=== PATIENT | female | born 1940 | race Caucasian/White ===

== ENCOUNTER 2021-04-03 09:35 | Emergency (ER) | payer MEDICARE, SELFPAY ==
--- NOTE | 2021-04-03 12:03 | EDS_ITS ---
DATE OF SERVICE 04/03/21 HISTORY OF PRESENT ILLNESS: The patient presents with rectal bleeding that began today. She states that she has been having pain in her rectum. She states that she noticed blood on the toilet paper when she wiped this morning. She denies any nausea or vomiting. She denies any dysuria, hematuria or urinary frequency. The patient states that this only happened one time today. The patient denies any abdominal pain. The patient denies any fever or chills. The patient denies any nausea or vomiting. PAST MEDICAL HISTORY: Stroke, diabetes, hypertension, hypercholesterolemia, kidney failure, depression and anxiety. PAST SURGICAL HISTORY: Hysterectomy and left carotid endarterectomy. CURRENT MEDICATIONS: Lisinopril, Wellbutrin, Plavix, pravastatin, vitamin D, Ocuvite. ALLERGIES: Sulfa. SOCIAL HISTORY: The patient smokes 6-7 cigarettes per day. REVIEW OF SYSTEMS: The patient admits to some rhinorrhea. The patient denies any fevers or chills. The patient denies any chest pain or palpitations. The patient denies any shortness of breath or cough. The patient denies any abdominal pain, nausea, vomiting. The patient denies any dysuria or hematuria. The patient admits to some chronic neck pain, but denies any back pain. The patient denies any rashes or boils. The patient denies any headaches. The patient admits to some weakness and feels tired. The patient denies any hives or swelling. PHYSICAL EXAMINATION: GENERAL: No acute distress. VITAL SIGNS: Stable, afebrile. HEENT: Oral mucosa is pink and moist. Conjunctivae clear. There is no conjunctival pallor noted. Pupils are equal, round and reactive to light bilaterally. NECK: Supple. Trachea midline. No JVD. LUNGS: Clear and equal bilaterally. HEART: Regular rate and rhythm. ABDOMEN: Soft. Bowel sounds are normal. There is mild diffuse tenderness. There is no rebound or guarding noted. RECTAL: There is an external hemorrhoid. There is some friable mucosa. There is no tenderness. There is no thrombosis. NEUROLOGIC: Cranial nerves II- XII are intact. There are no focal motor or sensory deficits noted. DIAGNOSTIC DATA: CBC was within normal limits. CMP was obtained and essentially within normal limits. BUN was slightly elevated at 20. Glucose was 122. Calcium was normal. Remainder within normal limits. EMERGENCY DEPARTMENT COURSE AND MEDICAL DECISION MAKING: The patient is resting comfortably on reexamination. The patient feels better and wants to go home. PLAN: The patient was given a prescription for Anusol HC cream. The patient was instructed to follow up with her primary care physician in 5-7 days. The patient and family understood and were agreeable with the plan. All questions answered. DIAGNOSIS: 1. External hemorrhoid 2. Rectal bleeding DISPOSITION: The patient is discharged home CONDITION: Stable
[2021-04-04 10:12] LABS: Absolute Lymphocyte Count 2.02 X10^3/uL (0.83-4.51); Absolute Neutrophil Count 2.1 X10^3/uL (2.0-7.7); Basophil# 0.04 X10^3/uL; Basophil% 0.8 % (0-1); Eosinophil# 0.18 X10^3/uL; Eosinophils% 3.8 % (0-5); Hematocrit 44.2 % (37-47); Hemoglobin 14.6 g/dL (12.0-15.0); Lymphocyte # 2.02 X10^3/ul (0.83-4.51); Lymphocyte % 42.5 % (19-41); Mean Corpuscular Hgb 30.2 pg (27.0-32.0); Mean Corpuscular Volume 91.3 fL (81-99); Mean Platelet Vol. 10.1 fl (6.2-12.0); Monocyte# 0.41 X10^3/uL; Monocyte% 8.6 % (0-10); NRBC Flagged by Analyzer 0 % (0-5); Neutrophil % 44.3 % (47-70); Platelet Count 230 K/mm3 (150-450); RBC Distribution Width CV 12.8 % (11.6-14.6); RBC Distribution Width SD 42.9 fl (35.1-43.9); Red Blood Count 4.84 M/mm3 (4.2-5.4); White Blood Count 4.8 K/mm3 (4.4-11.0)
[2021-04-04 11:57] LABS: ALB/GLOB Ratio 0.9 RATIO (0.9-2.4); Albumin, Serum 3.5 g/dL (3.2-5.0); BUN 20 mg/dL (7-18); BUN/Creat Ratio 16.9 RATIO (10-20); Creatinine, Serum 1.18 mg/dL (0.55-1.02); EST Glomerular Filtration Rate 47 mL/min (>60); Est Glom Filt Rate - Afr Amer 57 mL/min (>60); Globulin 3.9 g/dL (2.2-4.2); Glucose 122 mg/dL (74-106); Protein, Total 7.4 g/dL (6.4-8.2)
[2021-04-04 11:58] LABS: AST(SGOT) 13 U/L (15-37); Alanine Aminotransfer ALT/SGPT 22 U/L (13-56); Alkaline Phosphatase 68 U/L (45-117); Anion Gap 5 (5-15); Calcium,Total 9.9 mg/dL (8.5-10.1); Chloride 105 mmol/L (98-107); Sodium Level 140 mmol/L (136-145)
== END 2021-04-03 12:15 | disposition home or self-care (01) ==
LOC: ED 04-05 13:33
PROVIDERS: Emergency Provider Emergency Medicine; PCP Family Medicine; Visit Provider Emergency Medicine
DX: K64.4 Residual hemorrhoidal skin tags (principal); E11.9 Type 2 diabetes mellitus without complications; K62.5 Hemorrhage of anus and rectum; I10 Essential (primary) hypertension; E78.00 Pure hypercholesterolemia, unspecified; F32.A Depression, unspecified; F41.9 Anxiety disorder, unspecified; M54.2 Cervicalgia; G89.29 Other chronic pain; Z79.82 Long term (current) use of aspirin; F17.210 Nicotine dependence, cigarettes, uncomplicated; Z86.73 Personal history of transient ischemic attack (TIA), and cerebral infarction without residual deficits
CPT/HCPCS: 36415; 80053; 85025; 99284

== ENCOUNTER 2021-08-27 12:02 | Emergency (ER) | payer MEDICARE, MEDICAID, SELFPAY ==
[2021-08-27 12:03] VITALS: BP 147/73; PULSE 85; RESP 20; TEMP 36.4; O2SAT 96; BMI 28.6
--- NOTE | 2021-08-27 12:32 | ED.VIS.FALL ---
HPI HPI - Fall History of Present Illness Chief Complaint: Fall Detail of Chief Complaint: Chemical fall at home yesterday Informant: patient and family Occured/Mechanism Occurred: Yesterday Narrative: History of dropfoot. She tripped because she did not raise her leg high enough. Fall from Height (ft): Same level fall Usually ambulates: Without assistance Pain/Injury Pain Location: upper extremity (Left shoulder and posterior left back) Quality of Pain: Dull, Aching and Throbbing Current Severity: Mild Maximum Severity: Severe Worsened by: Movement of torso and deep breathing Relieved by: Nothing Associated Symptoms Associated Symptoms: Negative for Parasthesias, Weakness, Loss of function, Inability to ambulate, Loss of consciousness or Amnesia Narrative Narrative: Patient is a 81-year-old woman who had a mechanical fallWho presents for pain management. She reportedly had x-rays of the shoulder and chest which revealed multiple rib fracture on the left. Awaiting report from [facility] urgent care. She reports confusion with opiates. She has had tramadol in the past and morphine in the past. She denies head trauma. Denies headache. Denies visual, ocular auditory symptoms. She states it hurts to breathe. She denies shortness of breath. She denies change in the color of her urine. She denies bleeding problems. She does bruise easily. She has no other complaints Tetanus Immunization: 5-10 years Prior similar symptoms: No Recent Illness/Hospitalization: No PFSH PFSH Home Medications cetirizine 10 mg capsule (Allergy Relief (cetirizine)) 10 mg PO DAILY 05/22/13 [History Last Taken Unknown] lisinopril 10 mg tablet 10 mg PO DAILY 05/22/13 [History Last Taken 05/30/14] Lenore's wort 150 mg capsule 150 mg PO DAILY 05/29/14 [History Last Taken Unknown] aspirin 325 mg tablet 325 mg PO DAILY@0800 05/29/14 [History Last Taken Unknown] cholecalciferol (vitamin D3) 25 mcg (1,000 unit) tablet (Vitamin D3) 1,000 unit PO DAILY 05/29/14 [History Last Taken Unknown] lutein 6 mg capsule 6 mg PO DAILY 05/29/14 [History Last Taken Unknown] omega-3 fatty acids-fish oil 435 mg-880 mg capsule (Fish Oil Extra Strength) 1 ea PO DAILY 05/29/14 [History Last Taken Unknown] pravastatin 40 mg tablet 40 mg PO QHS 05/29/14 [History Last Taken Unknown] zinc 50 mg tablet 50 mg PO DAILY 05/29/14 [History Last Taken Unknown] hydrocodone-acetaminophen 5-325mg 5mg-325mg 0.5 tab PO Q6H PRN PRN Pain 6 days #10 TABLETS 08/27/21 [Rx Last Taken Unknown] Allergy/AdvReac Type Severity Reaction Status Date / Time Sulfa (Sulfonamide AdvReac Rash Verified 08/27/21 12:07 Antibiotics) opioids AdvReac Other Uncoded 08/27/21 12:07 Social History (Updated 08/27/21 @ 12:[address] James Cadet MD) household members: children Smoking Status: Current every day smoker tobacco type: cigarettes substance use type: does not use ROS ROS ED Constitutional Constitutional ED: Denies chills, fever(s), subjective, sweats or weight loss Eyes Eyes: Denies blurry vision, change in vision or diplopia ENT ENT ED: Denies ear pain, rhinorrhea or sore throat Cardiovascular Cardiovascular: Denies chest pain or palpitations Respiratory/Chest Respiratory/Chest: Denies cough, dyspnea or dyspnea on exertion Gastrointestinal Gastrointestinal: Denies abdominal pain, nausea or vomiting Genitourinary Genitourinary ED: Denies dysuria, hematuria or urinary frequency Musculoskeletal Musculoskeletal: Reports back pain; Denies arthralgias, myalgias or neck pain Integumentary Denies abscess, Abrasions or rash Neurologic Neurologic: Denies headache(s), paresthesias or weakness Hematologic/Lymphatic Hematologic/Lymphatic: Reports easy bruising; Denies easy bleeding or lymphadenopathy EXAM Physical Exam Const Vital Signs: 08/27/21 12:03 08/27/21 12:18 08/27/21 13:43 Temperature 97.5 F L Temperature Source Temporal Pulse Rate 85 81 Respiratory Rate 20 H Respiratory Effort Normal Non-Labored Respiratory Depth Normal Respiratory Pattern Normal Blood Pressure 147/73 H Blood Pressure Mean 97 Pulse Ox 96 97 Oxygen Delivery Method Room Air Room Air Room Air Positive well nourished and well developed Constitutional Narrative: Patient looks uncomfortable. She grimaces when she turns and takes a deep breath. General Appearance ED: well developed; Negative for NAD HEENT Reports normocephalic and TM's normal bilaterally HEENT Narrative: There is no septal deviation hematoma. There is no clinical findings of basal skull fracture. atraumatic Eyes PERRL and EOMs intact bilaterally General Eye ED: Negative for pale conjunctiva or scleral icterus Neck full ROM, no lymphadenopathy and supple Chest Wall palpation of chest normal; Negative for inspection of chest normal Chest Narrative: There is ecchymosis over the posterior left fourth fifth sixth rib. There is no subcutaneous air. There is clicking sound with deep breathing noted. Resp No normal respiratory effort, no retractions and No clear to auscultation bilaterally Resp Narrative: Rales noted on right side. There is no hyperresonance to percussion. Auscultation: Negative for rales, rhonchi, wheezes or diminished lung sounds Cardio regular rate, regular rhythm, S1 normal heart sound and S2 normal heart sound GI non-tender, non-distended and no masses Auscultation: normoactive bowel sounds Palpation: soft Back/Spine General Back: Negative for CVA tenderness Cervical Spine: Negative for cervical spine tenderness Thoracic Spine / Upper Back: ROM limited and pain with ROM; Negative for thoracic spinal tenderness Lumbar Spine / Lower Back: paraspinal muscle tenderness; Negative for lumbar spinal tenderness Neuro oriented x3, CN's II-XII intact bilaterally and moves all extremities Sensorium / Orientation: alert Cranial Nerves: CN normal except as noted Motor Exam: strength 5/5 throughout Psych mental status grossly normal and thought process normal Skin Skin Narrative: Ecchymosis noted posterior clavicular midclavicular line over left fourth fifth and sixth rib. Lesions: no lesions Rashes: no rashes Trauma: Negative for abrasion MDM MDM MDM Narrative Medical decision making narrative: IV was established and patient was treated with 2 mg IV morphine. Awaiting report from [facility] If report does not arrive we will need to reimage to confirm that patient does have multiple rib fractures and more importantly rule out hemothorax or pneumothorax. 4 view left rib detail reveals fractured fifth, sixth and seventh rib on the left. There is no evidence of pneumothorax or hemothorax. Radiologist did note a nodule right upper lobe. Patient and family was made aware of this and need for follow-up. The x-ray was independently interpreted and reviewed by me. Radiography Diagnostic Testing: Clinical Impression(s) from Imaging Studies Ribs w/Chest X-Ray 08/27/21 13:10 IMPRESSION: RIBS: Acute fractures of the posterior lateral left fifth, sixth, and seventh ribs. No pneumothorax or hemothorax. CHEST: Suspect right upper lobe pulmonary nodule and correlation with CT the chest with contrast is recommended. Electronically Signed: Bud Araya MD at 13:36 EDT , Treatment and Re-Evaluation Narrative: Patient was reassessed at 03/08/2003. She is using incentive spirometer. She states she just received the morphine. She is waiting to be taken to radiology suite for x-rays. Discharge Plan Triage Chief Complaint: Fall ED Provider: James Cadet Dx/Rx/DC Orders Clinical Impression: Multiple fractures of ribs of left side, Nodule of upper lobe of right lung Instructions: ED Rib Fracture, ED Pulmonary Nodule, Solitary Prescriptions: New hydrocodone-acetaminophen [hydrocodone-acetaminophen] 5-325 mg tablet 0.5 tab PO Q6H PRN PRN (Reason: Pain) 6 Days Qty: 10 0RF No Action lisinopril 10 MG tablet 10 mg PO DAILY Label Comments: HEART, BLOOD PRESSURE cetirizine [Allergy Relief (cetirizine)] 10 MG capsule 10 mg PO DAILY Label Comments: ALLERGIES aspirin 325 MG tablet 325 mg PO DAILY@0800 Label Comments: HEART HEALTH pravastatin 40 MG tablet 40 mg PO QHS Label Comments: CHOLESTEROL lutein 6 MG capsule 6 mg PO DAILY Label Comments: VITAMIN zinc 50 MG tablet 50 mg PO DAILY Label Comments: SUPPLEMENT [place]'s wort 150 MG capsule 150 mg PO DAILY Label Comments: SUPPLEMENT omega-3 fatty acids-fish oil [Fish Oil Extra Strength] 1 EACH capsule 1 ea PO DAILY Label Comments: SUPPLEMENT cholecalciferol (vitamin D3) [Vitamin D3] 1,000 UNIT tablet 1,000 unit PO DAILY Label Comments: SUPPLEMENT Primary Care Provider: Meño Lloyd Referrals: Meño Lloyd MD [Primary Care Provider] - Activity Restrictions/Additional Instructions: Use incentive spirometer every 1-2 hours while awake. Disposition Disposition: Home, Self Care
[2021-08-27] MEDS: Morphine 2 MG/ML Syringe IV (12:56)
[2021-08-27] MEDS: Ondansetron 4 MG/2 ML Vial IV (12:56)
--- NOTE | 2021-08-27 13:10 | RAD_ITS ---
STUDY: X-RAY - UNILATERAL RIBS ( LEFT ) WITH CHEST REASON FOR EXAM: Female, 81 years old. Clinically left fourth, fifth sixth rib fracture p TECHNIQUE - RIBS: 4 view(s) of the ribs. TECHNIQUE - CHEST: Single PA view of the chest. COMPARISON: None. FINDINGS - RIBS: Acute fractures the posterior lateral left fifth, sixth, and seventh ribs. 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 2.5 cm nodular opacity in the upper right lung worrisome for pulmonary nodule correlation with CT the chest with contrast is recommended. There is no demonstrated pleural abnormality. Normal size heart. Normal mediastinum and delmi. Normal visualized pulmonary arteries. Normal visualized aortic arch and descending thoracic aorta. Normal visualized thoracic spine. Normal visualized ribs, clavicles, and shoulders. There is no demonstrated abnormality of the visualized soft tissue structures of the upper abdomen. RAD/Ribs Uni Min 3V w/PA Chest IMPRESSION: RIBS: Acute fractures of the posterior lateral left fifth, sixth, and seventh ribs. No pneumothorax or hemothorax. CHEST: Suspect right upper lobe pulmonary nodule and correlation with CT the chest with contrast is recommended. Electronically Signed: Bud Araya MD at 13:36 EDT ,
[2021-08-27 13:43] VITALS: PULSE 81; O2SAT 97
[2021-08-27 15:07] VITALS: BP 132/68
== END 2021-08-27 15:07 | disposition home or self-care (01) ==
PROVIDERS: Emergency Provider Emergency Medicine; PCP Family Medicine; Visit Provider Emergency Medicine
DX: S22.42XA Multiple fractures of ribs, left side, initial encounter for closed fracture (principal); R91.1 Solitary pulmonary nodule; F17.210 Nicotine dependence, cigarettes, uncomplicated; W18.30XA Fall on same level, unspecified, initial encounter
CPT/HCPCS: 71101; 96374; 96375; 99284; J7050; A4216; J2405

== ENCOUNTER 2022-07-01 13:02 | Emergency (ER) | payer MEDICARE, MEDICAID, SELFPAY ==
[2022-07-01 13:03] VITALS: BP 117/96; PULSE 97; RESP 18; TEMP 36.1; O2SAT 97
--- NOTE | 2022-07-01 13:54 | EKG12_ITS ---
Test Reason : FALL Blood Pressure : / mmHG Vent. Rate : 079 BPM Atrial Rate : 079 BPM P-R Int : 182 ms QRS Dur : 080 ms QT Int : 392 ms P-R-T Axes : 046 007 058 degrees QTc Int : 449 ms Normal sinus rhythm Normal ECG Confirmed by DIANELYS TOSCANO, EDUARDO ([id number]), newspaper or periodical editor CIRO FABIAN ([id number]) on 07/04/2022 11:31:39 AM Referred By: Confirmed By:AISSATOU IVORY MD
--- NOTE | 2022-07-01 13:54 | CT_ITS ---
STUDY: CT BRAIN WITHOUT CONTRAST REASON FOR EXAM: Female, 82 years old. head injury RADIATION DOSAGE (If Supplied By Facility): CTDIvol = ( 44.99 ) mGy, DLP = ( 846.73 ) mGycm TECHNIQUE: Transaxial CT imaging of the brain was performed without administration of intravenous contrast material. Individualized dose optimization techniques were used for this CT. COMPARISON: No relevant priors. FINDINGS: Normal soft tissue structures. Normal calvarium. There is mild cerebral atrophy with widening of the extra-axial spaces and ventricular dilatation. There are areas of decreased attenuation within the white matter tracts of the supratentorial brain, consistent with microvascular disease changes. Left posterior parietal occipital encephalomalacia within the watershed zone is present. Normal basal ganglia and thalami. Normal brainstem. Normal cerebellum. There is no intracranial hemorrhage. There are no findings of an acute ischemic infarction. Normal visualized paranasal sinuses. CT/Brain/Head without Contrast IMPRESSION: Senescent changes as above with no evidence of acute intracranial bleed, mass or ischemia. Electronically Signed: Mike Ventura DO at 15:46 EDT ,
--- NOTE | 2022-07-01 13:56 | ED.VIS.FALL ---
HPI HPI - Fall History of Present Illness Chief Complaint: Fall Informant: patient and family Narrative Narrative: Patient is an 82-year-old female with history of dementia (ANO x2 at baseline now), hypertension hyperlipidemia presenting with her daughter for increased confusion and falls. Daughter reports that patient has seemed more confused over the past week and yesterday did not go to her [facility] and just slept all day. She told her daughter that she fell out of bed at some point last night but was able to get herself back in bed. She was complaining of some right hip pain and limping around the house today however she is still able to get around with a walker. After lunch she had another unwitnessed fall where the daughter thinks she fell onto her knees and then hit her head on the closet door. Daughter does not think she passed out or had loss of consciousness. Daughter notes that patient does have some chronic urinary incontinence but no significant change. No report of change in bowel movements. No other complaints at this time. Daughter was concerned that she could have infection or something else that caused her to fall so she brought her in for further evaluation. PFSH PFSH Home Medications cetirizine 10 mg capsule (Allergy Relief (cetirizine)) 10 mg PO DAILY 05/22/13 [History Last Taken Unknown] lisinopril 10 mg tablet 10 mg PO DAILY 05/22/13 [History Last Taken 05/30/14] [place]'s wort 150 mg capsule 150 mg PO DAILY 05/29/14 [History Last Taken Unknown] aspirin 325 mg tablet 325 mg PO DAILY@0800 05/29/14 [History Last Taken Unknown] cholecalciferol (vitamin D3) 25 mcg (1,000 unit) tablet (Vitamin D3) 1,000 unit PO DAILY 05/29/14 [History Last Taken Unknown] lutein 6 mg capsule 6 mg PO DAILY 05/29/14 [History Last Taken Unknown] omega-3 fatty acids-fish oil 435 mg-880 mg capsule (Fish Oil Extra Strength) 1 ea PO DAILY 05/29/14 [History Last Taken Unknown] pravastatin 40 mg tablet 40 mg PO QHS 05/29/14 [History Last Taken Unknown] zinc 50 mg tablet 50 mg PO DAILY 05/29/14 [History Last Taken Unknown] hydrocodone-acetaminophen 5-325mg 5mg-325mg 0.5 tab PO Q6H PRN PRN Pain 6 days #10 TABLETS 08/27/21 [Rx Last Taken Unknown] cephalexin 500 mg capsule 500 mg PO BID #14 caps 07/01/22 [Rx Last Taken Unknown] Allergy/AdvReac Type Severity Reaction Status Date / Time Opioids - Morphine Analogues AdvReac MENTAL Verified 07/01/22 13:07 STATUS CHANGES Sulfa (Sulfonamide AdvReac Rash Verified 07/01/22 13:07 Antibiotics) Family History no significant family his Surgical History no surgical history Social History household members: children Smoking Status: Current every day smoker tobacco type: cigarettes substance use type: does not use ROS ROS ED Review of Systems ROS Unobtainable: due to mental status EXAM Physical Exam Const Vital Signs: 07/01/22 13:03 07/01/22 13:33 Temperature 97 F L Temperature Source Temporal Pulse Rate 97 Respiratory Rate 18 Respiratory Effort Normal Respiratory Depth Normal Respiratory Pattern Normal Blood Pressure 117/96 H Blood Pressure Mean 103 Pulse Ox 97 Oxygen Delivery Method Room Air Positive well nourished and well developed General Appearance ED: well developed and NAD HEENT Reports normocephalic and TM's normal bilaterally atraumatic Eyes PERRL and EOMs intact bilaterally Neck full ROM and supple General: Negative for tenderness Chest Wall inspection of chest normal and palpation of chest normal Resp normal respiratory effort and clear to auscultation bilaterally Cardio regular rate, regular rhythm and no murmurs GI non-tender and non-distended Extremity Extremity Narrative: No pinpoint bony tenderness. Pelvis is stable. No pain with range of motion of the left hip or logroll. Patient not have pain with logroll of the right hip but she does have pain with range of motion of the hip itself. 2+ distal pulses. No deformity of the extremities. Neuro moves all extremities, no focal motor deficits and no sensory deficits noted [place] Coma Scale: document GCS findings Spontaneous Obeys Commands Oriented 15 Sensorium / Orientation: alert, oriented to person and oriented to place Psych mental status grossly normal Skin Lesions: no lesions Rashes: no rashes MDM MDM MDM Narrative Medical decision making narrative: Patient evaluated after 2 falls in the last 24 hours. She is been more confused over the past week. Had she been complaining some right hip pain. Differential includes intracranial hemorrhage, infection, UTI and hip fracture. Patient has normal vital signs in the emergency room. Mentation is at her baseline and she is not any focal neurologic deficits on my exam. CBC is largely unremarkable. There is no leukocytosis or anemia. Her BMP does show a mild bump in her creatinine of 1.44 and looks like her baseline is closer to 1.1. She is given some IV fluids in the ER. Urinalysis does show signs of contamination however it does have 10-25 white blood cells and rare bacteria. Will be sent for culture. Given that patient's had increased confusion with urinary incontinence we will treat for UTI with Keflex. Discussed admission to the hospital for observation overnight given her frequent falls and dementia versus going home with return precautions. Patient and family feel comfortable with going home. They are encouraged to return should she have a progression or worsening of her symptoms. Chest x-ray as well as hip/pelvis x-ray interpreted by myself as well as radiology do not show any acute process. She does have chronic changes. Patient is given Tylenol for pain control in the ER. History & Record Review Discussion w/independent historian: Family (H&P provided by daughter) Lab Data Attestation: I reviewed the patient's lab results. Labs: Laboratory Results - last 24 hr 07/01/22 07/01/22 07/01/22 14:15 14:15 15:10 WBC 5.5 RBC 4.44 Hgb 13.1 Hct 41.2 MCV 92.8 MCH 29.5 MCHC 31.8 L RDW Std Deviation 42.8 RDW Coeff of Dianelys 12.5 Plt Count 222 MPV 10.0 Immature Gran % (Auto) 0.200 Neut % (Auto) 63.7 Lymph % (Auto) 23.1 [place] % (Auto) 8.9 Eos % (Auto) 3.6 Baso % (Auto) 0.5 Absolute Neuts (auto) 3.5 Absolute Lymphs (auto) 1.27 Nucleated RBC % 0 Sodium 140 Potassium 4.2 Chloride 111 H Carbon Dioxide 25.0 Anion Gap 4 L BUN 27 H Creatinine 1.44 H Est GFR (MDRD) Af Amer 45 L Est GFR (MDRD) Non-Af 37 L BUN/Creatinine Ratio 18.8 Glucose 155 H Calcium 9.4 Urine Color Yellow Urine Clarity Sl. Cloudy Urine pH 6.0 Ur Specific [place] 1.020 Urine Protein 15 H Urine Glucose (UA) Normal Urine Ketones Negative Urine Occult Blood 10 H Urine Nitrite Negative Urine Bilirubin Negative Urine Urobilinogen 1 H Ur Leukocyte Esterase 100 H Urine RBC 0 SEEN Urine WBC 10-25 SEEN Ur Squamous Epith Cells 5-10 SEEN Urine Bacteria RARE Urine Mucus 0 SEEN Radiography Diagnostic Testing: Clinical Impression(s) from Imaging Studies Brain CT 07/01/22 13:54 IMPRESSION: Senescent changes as above with no evidence of acute intracranial bleed, mass or ischemia. Electronically Signed: Mike VenturaDO at 15:46 EDT , Chest X-Ray 07/01/22 15:35 IMPRESSION: Chronic interstitial markings with no distinct focal infiltrate. Old left lateral rib fractures are noted. Electronically Signed: Mike VenturaDO at 15:48 EDT , Hip/Pelvis X-Ray 07/01/22 15:35 IMPRESSION: Moderate bilateral hip joint space loss with no evidence of acute fracture or dislocation. Electronically Signed: Mike Ventura at 15:49 EDT , Rhythm Strip Rhythm Strip: Sinus Rhythm Rate: 79 Ectopy: None EKG Initial EKG: Attestation: I personally reviewed and interpreted this EKG as follows: Interpretation: Sinus Rhythm Comments: Normal sinus rhythm at a rate of 79 bpm Normal axis Normal intervals Normal ST segments Discharge Plan Triage Chief Complaint: Fall ED Provider: Michelle Estrada Dx/Rx/DC Orders Clinical Impression: Falls, Contusion of hip, right, Acute UTI Instructions: ED Hip Contusion, ED Cystitis Female Adult, ED Fall Prevention Prescriptions: New cephalexin 500 mg capsule 500 mg PO BID Qty: 14 0RF No Action lisinopril 10 MG tablet 10 mg PO DAILY Label Comments: HEART, BLOOD PRESSURE cetirizine [Allergy Relief (cetirizine)] 10 MG capsule 10 mg PO DAILY Label Comments: ALLERGIES aspirin 325 MG tablet 325 mg PO DAILY@0800 Label Comments: HEART HEALTH pravastatin 40 MG tablet 40 mg PO QHS Label Comments: CHOLESTEROL lutein 6 MG capsule 6 mg PO DAILY Label Comments: VITAMIN zinc 50 MG tablet 50 mg PO DAILY Label Comments: SUPPLEMENT [place]'s wort 150 MG capsule 150 mg PO DAILY Label Comments: SUPPLEMENT omega-3 fatty acids-fish oil [Fish Oil Extra Strength] 1 EACH capsule 1 ea PO DAILY Label Comments: SUPPLEMENT cholecalciferol (vitamin D3) [Vitamin D3] 1,000 UNIT tablet 1,000 unit PO DAILY Label Comments: SUPPLEMENT hydrocodone-acetaminophen [hydrocodone-acetaminophen] 5-325 mg tablet 0.5 tab PO Q6H PRN PRN (Reason: Pain) 6 Days Qty: 10 0RF Primary Care Provider: Meño Lloyd Referrals: Meño Lloyd MD [Primary Care Provider] - Activity Restrictions/Additional Instructions: Take antibiotic as prescribed. Take the next dose in the morning. She received a dose here. Encourage fluids. Take Tylenol as needed for pain. Return to the ER with any worsening symptoms. Disposition Disposition: Home, Self Care
[2022-07-01 14:19] LABS: Absolute Lymphocyte Count 1.27 X10^3/uL (0.83-4.51); Absolute Neutrophil Count 3.5 X10^3/uL (2.0-7.7); Basophil# 0.03 X10^3/uL; Basophil% 0.5 % (0-1); Eosinophils% 3.6 % (0-5); Hematocrit 41.2 % (37-47); Hemoglobin 13.1 g/dL (12.0-15.0); Lymphocyte # 1.27 X10^3/ul (0.83-4.51); Lymphocyte % 23.1 % (19-41); Mean Corp Hgb Conc 31.8 g/dL (32-36); Mean Corpuscular Hgb 29.5 pg (27.0-32.0); Mean Corpuscular Volume 92.8 fL (81-99); Monocyte# 0.49 X10^3/uL; Monocyte% 8.9 % (0-10); NRBC Flagged by Analyzer 0 % (0-5); Neutrophil # 3.49 X10^3/uL (2.7-7.7); Neutrophil % 63.7 % (47-70); Platelet Count 222 K/mm3 (150-450); RBC Distribution Width CV 12.5 % (11.6-14.6); RBC Distribution Width SD 42.8 fl (35.1-43.9); Red Blood Count 4.44 M/mm3 (4.2-5.4); White Blood Count 5.5 K/mm3 (4.4-11.0)
[2022-07-01 14:32] LABS: Anion Gap 4 (5-15); BUN 27 mg/dL (7-18); BUN/Creat Ratio 18.8 RATIO (10-20); Calcium,Total 9.4 mg/dL (8.5-10.1); Chloride 111 mmol/L (98-107); Creatinine, Serum 1.44 mg/dL (0.55-1.02); EST Glomerular Filtration Rate 37 mL/min (>60); Est Glom Filt Rate - Afr Amer 45 mL/min (>60); Glucose 155 mg/dL (74-106); Potassium 4.2 mmol/L (3.5-5.1); Sodium Level 140 mmol/L (136-145)
[2022-07-01 15:21] LABS: Mucous, Urine 0 SEEN /hpf (<or=2+); Red Blood Cells-Urine 0 SEEN /hpf (0-5)
[2022-07-01 15:22] LABS: Color, Urine Yellow (Yellow); Glucose, Dipstick Normal (Normal); Ketone-Dipstick Negative (Negative); Leukocyte Esterase-Dipstick 100 /ul (Negative); Nitrite-Dipstick Negative (Negative); Occult Blood-Urine 10 /ul (Negative); Protein-Dipstick 15 mg/dl (Negative); Urine Bilirubin Dipstick Negative (Negative); Urine Clarity Sl. Cloudy (Clear); Urine Urobilinogen 1 mg/dl (Normal)
[2022-07-01 15:31] LABS: Bacteria RARE /hpf (None Seen); Squamous Epithelial Cells - UA 5-10 SEEN /hpf (5-10); White Blood Cells 10-25 SEEN /hpf (0-5)
--- NOTE | 2022-07-01 15:35 | RAD_ITS ---
STUDY: X-RAY CHEST REASON FOR EXAM: Female, 82 years old. weakness, falls TECHNIQUE: Single PA view of the chest. COMPARISON: 08/27/2021 FINDINGS: Chronic interstitial markings are present along the periphery with no distinct focal infiltrate. There is no demonstrated pleural abnormality. Normal size heart. Normal mediastinum and delmi. Normal visualized pulmonary arteries. Normal visualized aortic arch and descending thoracic aorta. Normal visualized thoracic spine. Left lateral multiple old rib fractures are present. There is no demonstrated abnormality of the visualized soft tissue structures of the upper abdomen. RAD/Chest 1 View (Portable) IMPRESSION: Chronic interstitial markings with no distinct focal infiltrate. Old left lateral rib fractures are noted. Electronically Signed: Mike Ventura DO at 15:48 EDT ,
--- NOTE | 2022-07-01 15:35 | RAD_ITS ---
STUDY: X-RAY - PELVIS AND RIGHT HIP REASON FOR EXAM: Female, 82 years old. right hip pain TECHNIQUE: 3 views of the pelvis and hip. COMPARISON: None. FINDINGS: There is a non-specific bowel gas pattern. Normal visualized soft tissue structures. Diffuse demineralization is noted throughout. Normal bilateral iliac wings, sacroiliac joints and visualized sacrum. Normal bilateral superior and inferior pubic rami. Normal pubic symphysis. Normal bilateral ischial tuberosities. Normal visualized femoral head. Normal acetabulum. There is moderate articular joint space narrowing of the hip. RAD/HIP, UNI W/ Pelvis 2-3 Views IMPRESSION: Moderate bilateral hip joint space loss with no evidence of acute fracture or dislocation. Electronically Signed: Mike Ventura DO at 15:49 EDT ,
[2022-07-01] MEDS: 0.9% Normal Saline 1,000 ML 999 ML IV (15:50)
[2022-07-01] MEDS: Acetaminophen 325 MG Tablet 650 MG PO (16:25)
[2022-07-01] MEDS: Cephalexin 250 MG Capsule 500 MG PO (16:25)
[2022-07-01 16:26] VITALS: BMI 29.1
[2022-07-01 17:06] VITALS: PULSE 80; RESP 16; O2SAT 99
== END 2022-07-01 17:08 | disposition home or self-care (01) ==
PROVIDERS: Emergency Provider Emergency Medicine; PCP Family Medicine; Visit Provider Emergency Medicine
DX: S70.01XA Contusion of right hip, initial encounter (principal); F03.90 Unspecified dementia, unspecified severity, without behavioral disturbance, psychotic disturbance, mood disturbance, and anxiety; R32 Unspecified urinary incontinence; F17.210 Nicotine dependence, cigarettes, uncomplicated; I10 Essential (primary) hypertension; E78.5 Hyperlipidemia, unspecified; N39.0 Urinary tract infection, site not specified; W19.XXXA Unspecified fall, initial encounter
CPT/HCPCS: 70450; 71045; 73502; 80048; 81001; 85025; 87086; 87088; 93005; 96360; 99284; J7030; A4216

== ENCOUNTER 2022-09-15 08:11 | Emergency (ER) | payer MEDICARE, MEDICAID, SELFPAY ==
[2022-09-15 08:14] VITALS: BP 144/70; PULSE 85; RESP 14; TEMP 36.7; O2SAT 97; BMI 27.1
--- NOTE | 2022-09-15 08:47 | RAD_ITS ---
STUDY: X-RAY CHEST REASON FOR EXAM: Female, 82 years old. posse hemoptysis TECHNIQUE: PA and lateral views of the chest. COMPARISON: Comparison is made with prior study June 23, 2022. FINDINGS: Hyperinflation. Stable mild increased interstitial markings. No focal infiltrate is seen. There is no demonstrated pleural abnormality. Normal size heart. Normal mediastinum and delmi. Normal visualized pulmonary arteries. There is atherosclerotic calcification of the aortic arch with tortuosity. There are diffuse degenerative changes of the visualized thoracic spine. Increased kyphosis. Healed left rib fractures. There is no demonstrated abnormality of the visualized soft tissue structures of the upper abdomen. RAD/Chest PA and Lateral IMPRESSION: Stable increased interstitial markings. No acute abnormality is seen. Electronically Signed: Patel Burris MD at 9:30 EDT ,
--- NOTE | 2022-09-15 08:48 | EX.ED.DYSGE1 ---
HPI History of Present Illness Chief Complaint: GI Bleed Informant: patient Narrative Narrative: Patient presents with an episode of bleeding from her mouth. She was found with a small area of blood on her pillow this morning near her mouth. Her dentures smelled like blood. She also had an episode yesterday but it was not witnessed. Daughter brings her in, patient has dementia most of the history comes from the daughter, she states that the patient is a poor historian due to her dementia. She goes to adult daycare and the bleeding yesterday was found there, allegedly coming from the mouth as well. It is unknown if she coughed up the blood, spit it out, or has vomited it up. The patient feels fine right now. She denies any trouble breathing, she denies malaise or weakness, or abdominal discomfort. She has been constipated and has not had a bowel movement in 3 days. She takes aspirin and clopidogrel, she has carotid stent, it was placed more than 12 months ago. [facility] Medical History (Updated 09/15/22 @ 10:[address] Landen Fried MD) Dementia Foot drop History of stroke Hypercholesterolemia Hypertension PAD (peripheral artery disease) Home Medications cetirizine 10 mg capsule (Allergy Relief (cetirizine)) 10 mg PO DAILY 05/22/13 [History Last Taken Unknown] lisinopril 10 mg tablet 10 mg PO DAILY 05/22/13 [History Last Taken 05/30/14] [place]'s wort 150 mg capsule 150 mg PO DAILY 05/29/14 [History Last Taken Unknown] aspirin 325 mg tablet 325 mg PO DAILY@0800 05/29/14 [History Last Taken Unknown] cholecalciferol (vitamin D3) 25 mcg (1,000 unit) tablet (Vitamin D3) 1,000 unit PO DAILY 05/29/14 [History Last Taken Unknown] lutein 6 mg capsule 6 mg PO DAILY 05/29/14 [History Last Taken Unknown] omega-3 fatty acids-fish oil 435 mg-880 mg capsule (Fish Oil Extra Strength) 1 ea PO DAILY 05/29/14 [History Last Taken Unknown] pravastatin 40 mg tablet 40 mg PO QHS 05/29/14 [History Last Taken Unknown] zinc 50 mg tablet 50 mg PO DAILY 05/29/14 [History Last Taken Unknown] hydrocodone-acetaminophen 5-325mg 5mg-325mg 0.5 tab (1/2 x 5-325 mg) PO Q6H PRN PRN Pain 6 days #10 TABLETS 08/27/21 [Rx Last Taken Unknown] cephalexin 500 mg capsule 500 mg PO BID #14 caps 07/01/22 [Rx Last Taken Unknown] Allergy/AdvReac Type Severity Reaction Status Date / Time Opioids - Morphine Analogues AdvReac MENTAL Verified 09/15/22 08:14 STATUS CHANGES Sulfa (Sulfonamide AdvReac Rash Verified 09/15/22 08:14 Antibiotics) Family History no significant family his Social History household members: children Smoking Status: Current every day smoker tobacco type: cigarettes substance use type: does not use ROS ROS ED Review of Systems ROS Unobtainable: due to mental status Constitutional Constitutional ED: Denies chills or fever(s) Eyes Eyes: Denies change in vision or diplopia ENT ENT ED: Reports other Details: Denies mouth pain ; Denies sore throat Cardiovascular Cardiovascular: Denies chest pain Respiratory/Chest Respiratory/Chest: Denies cough or dyspnea Gastrointestinal Gastrointestinal: Denies abdominal pain or nausea Genitourinary Genitourinary ED: Denies dysuria or hematuria Musculoskeletal Musculoskeletal: Denies back pain or neck pain Integumentary Denies abscess or rash Neurologic Neurologic: Denies headache(s), paresthesias or weakness EXAM Physical Exam Const Vital Signs: 09/15/22 08:14 09/15/22 10:13 Temperature 98.1 F Temperature Source Temporal Pulse Rate 85 73 Respiratory Rate 14 16 Blood Pressure 144/70 H 148/60 H Blood Pressure Mean 94 89 Pulse Ox 97 98 Oxygen Delivery Method Room Air Positive well nourished and well developed General Appearance ED: well developed and NAD HEENT Reports moist mucous membranes HEENT Narrative: Patient's dentures were removed by herself. Intraoral exam is normal, gingiva appear normal I see no obvious lesions or sources of bleeding, there is no blood. There is no blood in the nares which are normal-appearing anteriorly. Posterior oropharynx is clear. No trismus. No tongue elevation. normocephalic and atraumatic Eyes PERRL and EOMs intact bilaterally Neck full ROM and supple Resp normal respiratory effort and clear to auscultation bilaterally Cardio regular rate, regular rhythm and no murmurs GI non-tender and non-distended Auscultation: normoactive bowel sounds Palpation: soft Back/Spine no CVA tenderness General Back: other FROM Extremity normal to inspection General Extremety ED: Negative for edema, pulses abnormal or tenderness General Extremity: Negative for edema or pulses abnormal Neuro CN's II-XII intact bilaterally and no sensory deficits noted Neuro Narrative: Oriented to person and place, at baseline per daughter Sensorium / Orientation: awake and alert Motor Exam: strength 5/5 throughout Psych mental status grossly normal Skin no rashes or lesions noted and no wounds MDM MDM MDM Narrative Medical decision making narrative: Labs are unremarkable, her hemoglobin is 12.8, I did review her last 1 which was 13.1 back in June, this is essentially the same in my judgment. She does not have a significantly elevated BUN to suggest an acute upper GI bleed here. I did a Hemoccult, that is pending, the daughter wants to take her home before the results of that are back which I think is fine, I have a very low suspicion (it returned negative). On rectal she is not obstipated or in need of disimpaction, she can treat constipation as an outpatient as needed, and there was barely any specimen to send definitely no melena or bright red blood or abscess/tenderness. Daughter is making appointment with ENT for follow-up, I discussed with vascular surgery, they agree that it would be safe to discontinue clopidogrel for 2 or 3 days since she has had stents placed more than 12 months ago and they agree that is a reasonable recommendation. Lab Data Attestation: I reviewed the patient's lab results. Labs: Laboratory Results - last 24 hr 09/15/22 09/15/22 09/15/22 08:30 08:30 09:07 WBC Cancelled 4.7 Corrected WBC Cancelled RBC Cancelled 4.37 Hgb Cancelled 12.8 Hct Cancelled 40.8 MCV Cancelled 93.4 MCH Cancelled 29.3 MCHC Cancelled 31.4 L RDW Std Deviation Cancelled 42.7 RDW Coeff of Dianelys Cancelled 12.3 Plt Count Cancelled 213 MPV Cancelled 9.9 Immature Gran % (Auto) Cancelled 0.200 Neut % (Auto) Cancelled 50.2 Lymph % (Auto) Cancelled 33.0 [place] % (Auto) Cancelled 10.3 H Eos % (Auto) Cancelled 5.4 H Baso % (Auto) Cancelled 0.9 Absolute Neuts (auto) Cancelled 2.3 Absolute Lymphs (auto) Cancelled 1.54 Total Counted Cancelled Neutrophils % (Manual) Cancelled Band Neutrophils % Cancelled Lymphocytes % (Manual) Cancelled Monocytes % (Manual) Cancelled Eosinophils % (Manual) Cancelled Basophils % (Manual) Cancelled Metamyelocytes % Cancelled Myelocytes % Cancelled Promyelocytes % Cancelled Blast Cells % Cancelled Plasma Cell % (Manual) Cancelled Other Cells % Cancelled Nucleated RBC % Cancelled 0 Nucleated RBCs/100 WBC Cancelled Differential Comment Cancelled Diff Path Review Cancelled Hypersegmented Neuts Cancelled Atypical Lymphocytes Cancelled Reactive Lymphocytes Cancelled Smudge Cells Cancelled Toxic Granulation Cancelled Toxic Vacuolation Cancelled Dohle Bodies Cancelled Codie Rods Cancelled Platelet Estimate Cancelled Plt Morphology Comment Cancelled RBC Morphology Cancelled Cancelled Polychromasia Cancelled Hypochromasia Cancelled Poikilocytosis Cancelled Basophilic Stippling Cancelled Anisocytosis Cancelled Microcytosis Cancelled Macrocytosis Cancelled Spherocytes Cancelled Sickle Cells Cancelled Target Cells Cancelled Tear Drop Cells Cancelled Ovalocytes Cancelled Stomatocytes Cancelled [place] Bodies Cancelled [place]anna Cells Cancelled Bite Cells Cancelled Crenated Cell Cancelled Acanthocytes (Spur) Cancelled Rouleaux Cancelled Schistocytes Cancelled Sodium 139 Potassium 5.0 Chloride 106 Carbon Dioxide 27.0 Anion Gap 6 BUN 19 H Creatinine 1.35 H Estim Creat Clear Calc 30.08 Est GFR (MDRD) Af Amer 48 L Est GFR (MDRD) Non-Af 40 L BUN/Creatinine Ratio 14.1 Glucose 98 Calcium 9.4 Radiography Diagnostic Testing: Clinical Impression(s) from Imaging Studies Chest X-Ray 09/15/22 08:47 IMPRESSION: Stable increased interstitial markings. No acute abnormality is seen. Electronically Signed: Patel Burris MD at 9:30 EDT , Management Discussion w/another healthcare provider: Flanging Roll Operator (Vascular surgery - [place] for Dr. Jacobo) Discharge Plan Triage Chief Complaint: GI Bleed ED Provider: Landen Fried Dx/Rx/DC Orders Clinical Impression: Bleeding from mouth Instructions: Parts of the Mouth Prescriptions: No Action lisinopril 10 MG tablet 10 mg PO DAILY Patient Comments: HEART, BLOOD PRESSURE cetirizine [Allergy Relief (cetirizine)] 10 MG capsule 10 mg PO DAILY Patient Comments: ALLERGIES aspirin 325 MG tablet 325 mg PO DAILY@0800 Patient Comments: HEART HEALTH pravastatin 40 MG tablet 40 mg PO QHS Patient Comments: CHOLESTEROL lutein 6 MG capsule 6 mg PO DAILY Patient Comments: VITAMIN zinc 50 MG tablet 50 mg PO DAILY Patient Comments: SUPPLEMENT [place]'s wort 150 MG capsule 150 mg PO DAILY Patient Comments: SUPPLEMENT omega-3 fatty acids-fish oil [Fish Oil Extra Strength] 1 EACH capsule 1 ea PO DAILY Patient Comments: SUPPLEMENT cholecalciferol (vitamin D3) [Vitamin D3] 1,000 UNIT tablet 1,000 unit PO DAILY Patient Comments: SUPPLEMENT hydrocodone-acetaminophen [hydrocodone-acetaminophen] 5-325 mg tablet 0.5 tab PO Q6H PRN PRN (Reason: Pain) 6 Days Qty: 10 0RF cephalexin 500 mg capsule 500 mg PO BID Qty: 14 0RF Primary Care Provider: Meño Lloyd Referrals: Meño Lloyd MD [Primary Care Provider] - Boy Giang MD [Med Staff - Active Staff] - Activity Restrictions/Additional Instructions: Hold clopidogrel for 3 days and then recontinue the medication as long as there is no further bleeding. She may continue aspirin since it takes a week of holding that for the effects to go away. Disposition Disposition: Home, Self Care Discharge Date/Time: 09/15/22 11:00
[2022-09-15 09:14] LABS: Anion Gap 6 (5-15); BUN 19 mg/dL (7-18); BUN/Creat Ratio 14.1 RATIO (10-20); Calcium,Total 9.4 mg/dL (8.5-10.1); Chloride 106 mmol/L (98-107); Creatinine, Serum 1.35 mg/dL (0.55-1.02); EST Glomerular Filtration Rate 40 mL/min (>60); Est Glom Filt Rate - Afr Amer 48 mL/min (>60); Estimated Creatinine Clearance 30.08 ml/min; Glucose 98 mg/dL (74-106); Sodium Level 139 mmol/L (136-145)
[2022-09-15 09:20] LABS: Absolute Lymphocyte Count 1.54 X10^3/uL (0.83-4.51); Absolute Neutrophil Count 2.3 X10^3/uL (2.0-7.7); Basophil# 0.04 X10^3/uL; Basophil% 0.9 % (0-1); Eosinophil# 0.25 X10^3/uL; Eosinophils% 5.4 % (0-5); Hematocrit 40.8 % (37-47); Hemoglobin 12.8 g/dL (12.0-15.0); Lymphocyte # 1.54 X10^3/ul (0.83-4.51); Mean Corp Hgb Conc 31.4 g/dL (32-36); Mean Corpuscular Hgb 29.3 pg (27.0-32.0); Mean Corpuscular Volume 93.4 fL (81-99); Mean Platelet Vol. 9.9 fl (6.2-12.0); Monocyte# 0.48 X10^3/uL; Monocyte% 10.3 % (0-10); NRBC Flagged by Analyzer 0 % (0-5); Neutrophil # 2.34 X10^3/uL (2.7-7.7); Neutrophil % 50.2 % (47-70); Platelet Count 213 K/mm3 (150-450); RBC Distribution Width CV 12.3 % (11.6-14.6); RBC Distribution Width SD 42.7 fl (35.1-43.9); Red Blood Count 4.37 M/mm3 (4.2-5.4); White Blood Count 4.7 K/mm3 (4.4-11.0)
[2022-09-15 10:13] VITALS: BP 148/60; PULSE 73; RESP 16; O2SAT 98
== END 2022-09-15 11:00 | disposition home or self-care (01) ==
PROVIDERS: Emergency Provider Emergency Medicine; PCP Family Medicine; Visit Provider Emergency Medicine
DX: K92.2 Gastrointestinal hemorrhage, unspecified (principal); F03.90 Unspecified dementia, unspecified severity, without behavioral disturbance, psychotic disturbance, mood disturbance, and anxiety; F17.210 Nicotine dependence, cigarettes, uncomplicated; I10 Essential (primary) hypertension; E78.00 Pure hypercholesterolemia, unspecified
CPT/HCPCS: 71046; 80048; 82274; 85025; 99283; A4216

== ENCOUNTER 2023-11-16 12:04 | Observation (INO) | payer MEDICARE, MEDICAID, SELFPAY ==
[2023-11-16] VITALS (12 sets, daily range): BP systolic 104–172; BP diastolic 54–72; PULSE 76–85; RESP 14–22; TEMP 36–36.7; O2SAT 93–99; BMI 26.3; BMI 26.0
--- NOTE | 2023-11-16 12:41 | EKG12_ITS ---
Test Reason : STROKE Blood Pressure : / mmHG Vent. Rate : 084 BPM Atrial Rate : 084 BPM P-R Int : 148 ms QRS Dur : 080 ms QT Int : 404 ms P-R-T Axes : 013 009 052 degrees QTc Int : 477 ms Normal sinus rhythm Normal ECG Confirmed by SWATHI CRUZ MD ([id number]), associate entertainment editor JAN MELARA ([id number]) on 11/18/2023 8:10:05 AM Referred By: SHANNON Confirmed By:SWATHI CRUZ MD
--- NOTE | 2023-11-16 12:41 | CT_ITS ---
STUDY: CT HEAD STROKE PROTOCOL W/O CONTRAST INJECTION REASON FOR EXAM: Female, 83 years old. Neuro deficit, acute, stroke suspected RADIATION DOSAGE (If Supplied By Facility): CTDIvol = ( 44.99 ) mGy, DLP = ( 815.79 ) mGycm TECHNIQUE: Transaxial CT imaging of the brain was performed without administration of intravenous contrast material. Individualized dose optimization techniques were used for this CT. COMPARISON: Comparison is made with prior study July 01, 2022. FINDINGS: Normal soft tissue structures. Normal calvarium. There is mild cerebral atrophy with widening of the extra-axial spaces and ventricular dilatation. There are areas of decreased attenuation within the white matter tracts of the supratentorial brain, consistent with microvascular disease changes. Stable focal encephalomalacia in the left posterior parietal-occipital lobes. Normal basal ganglia and thalami. Normal brainstem. Normal cerebellum. There is no intracranial hemorrhage. There are no findings of an acute ischemic infarction. Atherosclerotic calcification of the cavernous portions of the internal carotid arteries bilaterally. Partial opacification of the maxillary sinuses more prominent on the left side. ASPECT score: 9 CT/STROKE Brain/Head without Cont IMPRESSION: Chronic involutional changes of the brain. N.B. : The above Results were Read Back by Patel Burris MD to Rob Evans DO, and understanding confirmed on 11/16/2023 13:01:30 (ET). Electronically Signed: Patel Burris MD at 13:02 EDT ,
--- NOTE | 2023-11-16 12:41 | CT_ITS ---
We are attempting to reach an attending provider to discuss findings. An addendum with communication details will be sent when the communication is complete. STUDY: CTA HEAD AND NECK WITH CONTRAST REASON FOR EXAM: Female, 83 years old. Neuro deficit, acute, stroke suspected RADIATION DOSAGE (If Supplied By Facility): CTDIvol = ( 18.79 ) mGy, DLP = ( 587.02 ) mGycm TECHNIQUE: CT angiography was performed with a multi-detector CT scanner. Data acquisition was obtained from the skull base through the vertex following intravenous administration of IV 100mL [id number]. MIP images were reconstructed from the axial data set. Post-processing of the angiographic images was performed, with multiplanar reformation and 3D reconstruction. Individualized dose optimization techniques were used for this CT. COMPARISON: No relevant priors. FINDINGS: Normal bilateral petrous carotid arteries. There is calcified plaque formation of the right cavernous carotid artery, with a mild stenosis (less than 50%). There is calcified plaque formation of the left cavernous carotid artery, with a mild stenosis (less than 50%). Normal right A1 segments of the anterior cerebral artery. Normal left A1 segments of the anterior cerebral artery. Normal intact anterior communicating artery (ACOM). Normal bilateral A2 segments of the anterior cerebral arteries. Normal right M1 and M2 segments of the middle cerebral arteries, with a normal M1 bifurcation. Normal left M1 and M2 segments of the middle cerebral arteries, with a normal M1 bifurcation. Normal right posterior communicating artery (PCOM). Normal left posterior communicating artery (PCOM). Normal bilateral vertebral arteries. Normal basilar artery with a normal basilar bifurcation. The visualized bilateral superior cerebellar (SCA) arteries are normal. Normal bilateral P1, P2 and visualized P3 segments of the posterior cerebral arteries. There is no demonstrated aneurysm of the [place] of [place]. Mild heterogeneous enlargement of the thyroid gland. AORTIC ARCH: There is atherosclerotic calcific plaque formation of the aortic arch and great vessels arising from the aortic arch, without a hemodynamically significant stenosis. There is a normal origin of the brachiocephalic, left common carotid, and left subclavian arteries. Atherosclerotic plaque formation at the origin of the left subclavian artery and right brachiocephalic artery. RIGHT CAROTID ARTERIES: There is atherosclerotic plaque formation of the common carotid artery, but without a hemodynamically significant stenosis. Normal right common carotid bulb. There is severe atherosclerotic plaque formation of the origin of the right internal carotid artery with a near complete occlusion. Normal visualized cervical portion of the right internal carotid artery. Normal origin of the right external carotid artery (ECA). LEFT CAROTID ARTERIES: There is atherosclerotic plaque formation of the common carotid artery, but without a hemodynamically significant stenosis. Normal left common carotid bulb. There is mild atherosclerotic plaque formation of the origin of the left internal carotid artery with less than 50% cross sectional diameter stenosis. Normal visualized cervical portion of the left internal carotid artery. Normal origin of the left external carotid artery (ECA). VERTEBRAL ARTERIES: Normal bilateral vertebral arteries. 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 Mild plaque formation at the origin of the left internal carotid artery. Electronically Signed: Patel Burris MD at 13:19 EDT ,
--- NOTE | 2023-11-16 12:44 | ED.RN ---
alert and oriented x3. a little slow to recall year. answers all questions correctly. sensation equal on both sides. reports nancy hand numbness.
[2023-11-16 12:59] LABS: Bedside Glucose 77 mg/dL (74-106)
[2023-11-16 13:06] LABS: Absolute Lymphocyte Count 1.58 X10^3/uL (0.83-4.51); Absolute Neutrophil Count 2.5 X10^3/uL (2.0-7.7); Basophil# 0.04 X10^3/uL; Basophil% 0.8 % (0-1); Eosinophil# 0.33 X10^3/uL; Eosinophils% 6.4 % (0-5); Hematocrit 39.7 % (37-47); Hemoglobin 12.5 g/dL (12.0-15.0); Lymphocyte # 1.58 X10^3/ul (0.83-4.51); Lymphocyte % 30.7 % (19-41); Mean Corp Hgb Conc 31.5 g/dL (32-36); Mean Corpuscular Hgb 28.2 pg (27.0-32.0); Mean Corpuscular Volume 89.6 fL (81-99); Mean Platelet Vol. 10.3 fl (6.2-12.0); Monocyte# 0.63 X10^3/uL; Monocyte% 12.3 % (0-10); NRBC Flagged by Analyzer 0 % (0-5); Neutrophil # 2.54 X10^3/uL (2.7-7.7); Neutrophil % 49.4 % (47-70); Platelet Count 230 K/mm3 (150-450); RBC Distribution Width CV 12.1 % (11.6-14.6); RBC Distribution Width SD 39.4 fl (35.1-43.9); Red Blood Count 4.43 M/mm3 (4.2-5.4); White Blood Count 5.1 K/mm3 (4.4-11.0)
[2023-11-16 13:15] LABS: International Normalized Ratio 1.1
[2023-11-16 13:16] LABS: Partial Thromboplast Time 29.9 Seconds (24.1-36.2)
--- NOTE | 2023-11-16 13:20 | RAD_ITS ---
STUDY: X-RAY CHEST REASON FOR EXAM: Female, 83 years old. Neuro deficit, acute, stroke suspected TECHNIQUE: Single AP portable view of the chest. COMPARISON: Comparison is made with prior study dated September 15, 2022. FINDINGS: EKG electrodes are seen. Stable mild increased interstitial markings in keeping with mild scarring. There is no demonstrated pleural abnormality. Normal size heart. Normal mediastinum and delmi. Normal visualized pulmonary arteries. Normal visualized aortic arch and descending thoracic aorta. Normal visualized thoracic spine. Healed left rib fractures. Small hiatal hernia. RAD/Chest 1 View IMPRESSION: Stable examination. Electronically Signed: Patel Burris MD at 13:51 EDT ,
[2023-11-16 13:27] LABS: Anion Gap 5 (5-15); BUN 21 mg/dL (7-18); BUN/Creat Ratio 15.2 RATIO (10-20); Calcium,Total 9.7 mg/dL (8.5-10.1); Chloride 101 mmol/L (98-107); Creatinine, Serum 1.38 mg/dL (0.55-1.02); EST Glomerular Filtration Rate 39 mL/min (>60); Est Glom Filt Rate - Afr Amer 47 mL/min (>60); Estimated Creatinine Clearance 31.78 ml/min; Glucose 87 mg/dL (74-106); Potassium 4.8 mmol/L (3.5-5.1); Sodium Level 133 mmol/L (136-145); Troponin-I HS 7 pg/mL (3.0-54.0)
[2023-11-16 13:30] LABS: Lactic Acid 0.7 mmol/L (0.4-1.9)
[2023-11-16] MEDS: 0.9% Normal Saline (1000mL) 1,000 ML 999 ML IV (13:39)
--- NOTE | 2023-11-16 14:28 | EX.ED.DYSGE1 ---
HPI History of Present Illness Chief Complaint: General Illness Narrative Narrative: Chief complaint and HPI: Confusion. 83-year-old female with history of CVA/TIA with short-term memory as well as ataxic deficits, chronic right carotid stenosis presents for evaluation of confusion. Given patient short-term memory, patient is a poor historian. She does endorse that she feels more confused. When I ask her to explain this she states I feel cloudy and I am having trouble finding my words. Daughter is at bedside who the patient lives with. Daughter states that patient is slightly more confused than her baseline. When asked her to explain this. She states she is very slow to respond and seems like she is having to think about her answers more. Per daughter, patient was at her normal state of health this morning. She went to her [employer] [facility] which she always goes to in which the daughter got a call [phone] stating that the patient became acutely more confused and complained of bilateral paresthesias. Patient currently denying any paresthesias and no focal neurological deficits patient and daughter deny fever, chills, shortness of breath, chest pain abdominal pain, nausea, vomiting, dysuria, diarrhea. Review of systems: See HPI Medications: As listed on the chart Allergies: As listed on the chart PFSH: Per chart Vital signs: As listed on the chart. Reviewed. Physical exam: Gen: A&O x2-baseline per daughter, NAD Head: Normocephalic, atraumatic Eyes: No sclera icterus, conjunctiva clear, PERRL, EOMI ENT: Moist mucous membranes, No facial asymmetry Neck: Trachea midline, No JVD CV: RRR, no murmurs, no peripheral edema Resp: Lungs CTA BL, no w/r/c GI: Abd soft, non-distended, non-tender, no r/r/g Musc: Moves all extremities, no deformity, strength +4/5 in all extremities, no pronator drift, mild ataxia with [id number] and nose to finger testing on the left and the right-baseline per daughter Skin: Warm, dry, intact Neuro: Alert, sensation intact, no focal deficits, slow to respond but no clear aphasia or dysarthria, NIH 0 Psych: Cooperative, appropriate mood and affect EKG: Interpreted by me/EM physician: EKG shows normal sinus rhythm without any acute ischemic changes. Heart rate 84. Diagnostic: Interpreted by me/EM physician: Chest x-ray without pneumonia, effusion, pneumothorax. Radiology report shows small hiatal hernia and healed left rib fractures. [facility] Medical History Dementia PAD (peripheral artery disease) History of stroke Foot drop Hypercholesterolemia Hypertension Home Medications ?Medication ?Instructions ?Recorded ?Last Taken ?Type lisinopril 10 mg tablet 10 mg PO DAILY blood pressure 05/22/13 11/16/23 History cholecalciferol (vitamin D3) 25 1,000 unit PO DAILY SUPPLEMENT 05/29/14 Unknown History mcg (1,000 unit) tablet (Vitamin D3) pravastatin 40 mg tablet 40 mg PO DAILY 05/29/14 11/16/23 History artificial tears(hypromellose) 0.3 1 drp EACH EYE QHS 11/16/23 11/15/23 History % eye gel (Systane Gel) bupropion HCl 150 mg tablet,12 hr 150 mg PO BID 11/16/23 11/16/23 History sustained-release cetirizine 10 mg capsule (All Day 10 mg PO DAILY 11/16/23 11/16/23 History Allergy (cetirizine)) clopidogrel 75 mg tablet 75 mg PO DAILY 11/16/23 11/16/23 History dextromethorphan 20 mg-quinidine 1 cap PO BID 11/16/23 11/16/23 History 10 mg capsule (Nuedexta) famotidine 20 mg tablet 20 mg PO BID 11/16/23 11/16/23 History Allergy/AdvReac Type Severity Reaction Status Date / Time Opioids - Morphine Analogues AdvReac MENTAL Verified 11/16/23 12:05 STATUS CHANGES Sulfa (Sulfonamide AdvReac Rash Verified 11/16/23 12:05 Antibiotics) Family History no significant family his Social History household members: children Smoking Status: Current every day smoker tobacco type: cigarettes substance use type: does not use EXAM Physical Exam Const Vital Signs: 11/16/23 12:05 11/16/23 12:09 11/16/23 12:19 Temperature 98.1 F Temperature Source Oral Pulse Rate 84 79 Respiratory Rate 18 14 Respiratory Effort Normal Respiratory Pattern Normal Blood Pressure 156/68 H Blood Pressure Mean 97 Pulse Ox 98 98 Oxygen Delivery Method Room Air 11/16/23 12:20 11/16/23 12:30 11/16/23 12:40 Temperature Temperature Source Pulse Rate 76 82 80 Respiratory Rate 14 22 H 18 Respiratory Effort Respiratory Pattern Blood Pressure 172/72 H Blood Pressure Mean 102 Pulse Ox 95 97 99 Oxygen Delivery Method 11/16/23 12:45 11/16/23 13:00 11/16/23 13:00 Temperature Temperature Source Pulse Rate 83 82 Respiratory Rate 15 15 Respiratory Effort Respiratory Pattern Blood Pressure 162/68 H 144/59 H Blood Pressure Mean 92 87 Pulse Ox 96 93 Oxygen Delivery Method Room Air 11/16/23 13:02 11/16/23 14:00 Temperature Temperature Source Pulse Rate 85 Respiratory Rate 16 Respiratory Effort Respiratory Pattern Blood Pressure 145/64 H Blood Pressure Mean 87 Pulse Ox 96 Oxygen Delivery Method Room Air MDM MDM MDM Narrative Medical decision making narrative: 83-year-old female with history of CVA/TIA presents for evaluation of confusion. She is endorsing expressive aphasia. Per report symptoms started at 1139. Her NIH is 0 based on her known deficits from previous stroke however given that this was an acute change within her last known normal and is within the tPA window patient was made a stroke alert. Patient was taken to the CT scanner for CT head and CTAs. Stroke workup ordered. Differential diagnosis includes CVA, TIA, metabolic encephalopathy due to electrolyte abnormality, dehydration, UTI. Patient not endorsing any infectious symptoms. Patient was evaluated by [facility]. During their evaluation, patient's symptoms started to improve. CT head without acute CVA or intracranial hemorrhage. Patient was discussed with [facility], they agree given her low NIH as well as nonspecific symptoms and improvement no need for tPA at this time. Her differential is TIA/CVA versus metabolic encephalopathy. Recommend admission with MRI brain. CTA of the head and neck without LVO. 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 CBC without leukocytosis or anemia. Coagulation panel unremarkable. BMP shows baseline CKD. UA pending. Patient will warrant admission for further workup. Patient and family updated all the results and the plan. They confirmed understanding. Patient was discussed with Dr. Torres. He accepted admission as long as neurology recommends no intervention of the right internal carotid artery subtotal occlusion. I recontacted neurology okay with admission here given that this is a chronic finding. Patient will be admitted to Dr. Torres. Impression: 1. Confusion - TIA/CVA versus metabolic encephalopathy 2. CKD 30 minutes of critical care time utilized in managing the patient. This is due to high probability of deterioration of the patient based on the patient's condition and excludes any separately billable procedures. Lab Data Labs: Laboratory Results - last 24 hr 11/16/23 11/16/23 11/16/23 12:41 12:50 13:00 WBC 5.1 RBC 4.43 Hgb 12.5 Hct 39.7 MCV 89.6 MCH 28.2 MCHC 31.5 L RDW Std Deviation 39.4 RDW Coeff of Dianelys 12.1 Plt Count 230 MPV 10.3 Immature Gran % (Auto) 0.400 Neut % (Auto) 49.4 Lymph % (Auto) 30.7 [place] % (Auto) 12.3 H Eos % (Auto) 6.4 H Baso % (Auto) 0.8 Absolute Neuts (auto) 2.5 Absolute Lymphs (auto) 1.58 Nucleated RBC % 0 PT 14.0 INR 1.1 APTT 29.9 Sodium 133 L Potassium 4.8 Chloride 101 Carbon Dioxide 27.0 Anion Gap 5 BUN 21 H Creatinine 1.38 H Estim Creat Clear Calc 31.78 Est GFR (MDRD) Af Amer 47 L Est GFR (MDRD) Non-Af 39 L BUN/Creatinine Ratio 15.2 Glucose 87 Lactic Acid 0.7 Calcium 9.7 Troponin I High Sens 7 POC Glucose 77 Radiography Diagnostic Testing: Clinical Impression(s) from Imaging Studies Brain CT 11/16/23 12:41 IMPRESSION: Chronic involutional changes of the brain. N.B. : The above Results were Read Back by Patel Burris MD to Rob Evans DO, and understanding confirmed on 11/16/2023 13:01:30 (ET). Electronically Signed: Patel Burris MD at 13:02 EDT , ADDENDUM: 11/16/23 1309 IMPRESSION: Chronic involutional changes of the brain. N.B. : The above Results were Read Back by Patel Burris MD to Rob Evans DO, and understanding confirmed on 11/16/2023 13:01:30 (ET). 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 Mild plaque formation at the origin of the left internal carotid artery. 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 Mild plaque formation at the origin of the left internal carotid artery. N.B. : The above Results were Read Back by Patel Burris MD to Rob Evans DO, and understanding confirmed on 11/16/2023 13:37:04 (ET). Electronically Signed: Patel Burris MD at 13:19 EDT , Chest X-Ray 11/16/23 13:20 IMPRESSION: Stable examination. Electronically Signed: Patel Burris MD at 13:51 EDT , Discharge Plan Triage Chief Complaint: General Illness ED Provider: Rob Evans Dx/Rx/DC Orders Prescriptions: No Action lisinopril 10 MG tablet 10 mg PO DAILY pravastatin 40 MG tablet 40 mg PO DAILY Patient Comments: CHOLESTEROL cholecalciferol (vitamin D3) [Vitamin D3] 1,000 UNIT tablet 1,000 unit PO DAILY clopidogrel 75 mg tablet 75 mg PO DAILY bupropion HCl 150 mg tablet sustained-release 12 hr 150 mg PO BID All Day Allergy (cetirizine) 10 mg capsule 10 mg PO DAILY famotidine 20 mg tablet 20 mg PO BID Nuedexta 20-10 mg capsule 1 cap PO BID Systane Gel 0.3 % gel 1 drp EACH EYE [facility] Primary Care Provider: Meño Lloyd Referrals: Meño Lloyd MD [Primary Care Provider] - Print Language: Latvian
--- NOTE | 2023-11-16 14:38 | HP.PCM.HOS_ITS ---
HPI - General General Date of Admission: 11/16/23 HPI Narrative ANA LANDA, is a 83 F who presents to the hospital with an acute onset of confusion today. Though during my evaluation the daughter states that she is back to baseline. She does have a history of previous CVA with no significant chronic deficits though she does have some short-term memory loss as well as some ataxic deficits reported the daughter. She has been in the process of being worked up for possible vascular dementia given the increased confusion but that still in the process. Today she was concern for possible stroke at the beginning the confusion, she had a CT of the head and neck which showed a subtotal occlusion of the left internal carotid artery which is a known deficit. She was evaluated by [facility] neurology who put her NIH at a 1 and felt that this possibly was more of a toxic versus metabolic encephalopathy. No signs of an infectious etiology at this time. [facility] Medical History (Updated 11/16/23 @ 16:[address] Gianni Torres MD) Dementia PAD (peripheral artery disease) History of stroke Foot drop Hypercholesterolemia Hypertension Home Medications ?Medication ?Instructions ?Recorded ?Last Taken ?Type lisinopril 10 mg tablet 10 mg PO DAILY blood pressure 05/22/13 11/16/23 History cholecalciferol (vitamin D3) 25 1,000 unit PO DAILY SUPPLEMENT 05/29/14 Unknown History mcg (1,000 unit) tablet (Vitamin D3) pravastatin 40 mg tablet 40 mg PO DAILY 05/29/14 11/16/23 History artificial tears(hypromellose) 0.3 1 drp EACH EYE QHS 11/16/23 11/15/23 History % eye gel (Systane Gel) bupropion HCl 150 mg tablet,12 hr 150 mg PO BID 11/16/23 11/16/23 History sustained-release cetirizine 10 mg capsule (All Day 10 mg PO DAILY 11/16/23 11/16/23 History Allergy (cetirizine)) clopidogrel 75 mg tablet 75 mg PO DAILY 11/16/23 11/16/23 History dextromethorphan 20 mg-quinidine 1 cap PO BID 11/16/23 11/16/23 History 10 mg capsule (Nuedexta) famotidine 20 mg tablet 20 mg PO BID 11/16/23 11/16/23 History Allergy/AdvReac Type Severity Reaction Status Date / Time Opioids - Morphine Analogues AdvReac MENTAL Verified 11/16/23 12:05 STATUS CHANGES Sulfa (Sulfonamide AdvReac Rash Verified 11/16/23 12:05 Antibiotics) Family History (Updated 11/16/23 @ 16:[address] Gianni Torres MD) Other Cancer Surgical History (Updated 11/16/23 @ 16:[address] Gianni Torres MD) H/O: hysterectomy Social History household members: children Smoking Status: Current every day smoker tobacco type: cigarettes substance use type: does not use ROS Constitutional Constitutional: Denies chills, fatigue, fever(s) or malaise Eyes Eyes: Denies blurry vision ENT HEENT: Denies headache(s) or nasal discharge Cardiovascular Cardiovascular: Denies chest pain, dyspnea on exertion or syncope Respiratory/Chest Respiratory/Chest: Denies cough, shortness of breath at rest or shortness of breath with exertion Gastrointestinal Gastrointestinal: Denies constipation, diarrhea, nausea or vomiting Genitourinary Genitourinary: Denies dysuria Neurologic Neurologic: Denies focal weakness, numbness or tremor(s) Psychiatric Psychiatric: Denies anxiety or depression Vital Signs Vital Signs Vital Signs: 11/16/23 12:05 11/16/23 12:09 11/16/23 12:19 Temperature 98.1 F Temperature Source Oral Pulse Rate 84 79 Respiratory Rate 18 14 Respiratory Effort Normal Respiratory Pattern Normal Blood Pressure 156/68 H Blood Pressure Mean 97 Pulse Ox 98 98 Oxygen Delivery Method Room Air 11/16/23 12:20 11/16/23 12:30 11/16/23 12:40 Temperature Temperature Source Pulse Rate 76 82 80 Respiratory Rate 14 22 H 18 Respiratory Effort Respiratory Pattern Blood Pressure 172/72 H Blood Pressure Mean 102 Pulse Ox 95 97 99 Oxygen Delivery Method 11/16/23 12:45 11/16/23 13:00 11/16/23 13:00 Temperature Temperature Source Pulse Rate 83 82 Respiratory Rate 15 15 Respiratory Effort Respiratory Pattern Blood Pressure 162/68 H 144/59 H Blood Pressure Mean 92 87 Pulse Ox 96 93 Oxygen Delivery Method Room Air 11/16/23 13:02 11/16/23 14:00 Temperature Temperature Source Pulse Rate 85 Respiratory Rate 16 Respiratory Effort Respiratory Pattern Blood Pressure 145/64 H Blood Pressure Mean 87 Pulse Ox 96 Oxygen Delivery Method Room Air Weight Weight: 163 lb 2.273 oz Body Mass Index (BMI) 26.3 Physical Exam Narrative General: Alert, Oriented x3, Cooperative, No apparent distress HEENT: Atraumatic, PERRLA, EOMI, Normocephalic Oral: Moist Mucosa Neck: Supple, No JVD Lungs: Diminished, Normal air movement, No rhonchi, No wheeze, No rales Cardiovascular: Regular rate, Regular Rhythm, Normal S1, Normal S2, No murmurs Abdomen: Soft, Non Tender, Non-Distended, No Hepato-splenomegaly Extremities: No edema, Capillary Refill Less than 3 Seconds Skin: No rashes, No breakdown Musculoskeletal: No Tenderness to Palpation of Joints or Extremities Neurological: No focal neurological deficits, Motor Exam 5/5 strength throughout, Sensory exam intact to light touch and pain Psych/Mental Status: Normal Affect, Appropriate Results Lab / Micro Data 11/16/23 12:50 11/16/23 12:50 Labs: Laboratory Results - last 24 hr 11/16/23 12:41: POC Glucose 77 11/16/23 12:50: WBC 5.1, RBC 4.43, Hgb 12.5, Hct 39.7, MCV 89.6, MCH 28.2, MCHC 31.5 L, RDW Std Deviation 39.4, RDW Coeff of Dianelys 12.1, Plt Count 230, MPV 10.3, Immature Gran % (Auto) 0.400, Neut % (Auto) 49.4, Lymph % (Auto) 30.7, [place] % (Auto) 12.3 H, Eos % (Auto) 6.4 H, Baso % (Auto) 0.8, Absolute Neuts (auto) 2.5, Absolute Lymphs (auto) 1.58, Nucleated RBC % 0, PT 14.0, INR 1.1, APTT 29.9, S odium 133 L, Potassium 4.8, Chloride 101, Carbon Dioxide 27.0, Anion Gap 5, BUN 21 H, Creatinine 1.38 H, Estim Creat Clear Calc 31.78, Est GFR (MDRD) Af Amer 47 L, Est GFR (MDRD) Non-Af 39 L, BUN/Creatinine Ratio 15.2, Glucose 87, Calcium 9.7, Troponin I High Sens 7 11/16/23 13:00: Lactic Acid 0.7 Imaging Radiology Impression Brain CT 11/16/23 12:41 IMPRESSION: Chronic involutional changes of the brain. N.B. : The above Results were Read Back by Patel Burris MD to Rob Evans DO, and understanding confirmed on 11/16/2023 13:01:30 (ET). Electronically Signed: Patel Burris MD at 13:02 EDT , ADDENDUM: 11/16/23 1309 IMPRESSION: Chronic involutional changes of the brain. N.B. : The above Results were Read Back by Patel Burris MD to Rob Evans DO, and understanding confirmed on 11/16/2023 13:01:30 (ET). 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 Mild plaque formation at the origin of the left internal carotid artery. 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 Mild plaque formation at the origin of the left internal carotid artery. N.B. : The above Results were Read Back by Patel Burris MD to Rob Evans DO, and understanding confirmed on 11/16/2023 13:37:04 (ET). Electronically Signed: Patel Burris MD at 13:19 EDT , Chest X-Ray 11/16/23 13:20 IMPRESSION: Stable examination. Electronically Signed: Patel Burris MD at 13:51 EDT , Assessment & Plan Assessment/Plan (1) TIA (transient ischemic attack): PLAN: Plan 1. TIA versus metabolic or toxic encephalopathy/concerns for vascular dementia ? Given the complete resolution so quickly unclear as to the etiology at the moment ? Will obtain an MRI in the morning ? PT/OT ? She does not appear to take any medications that would cause her to be at risk other than Wellbutrin if she overdosed which it does not sound like she did ? Continue with Plavix and will restart her lisinopril in the morning ? Will continue with pravastatin ? 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 She will need to follow-up as an outpatient with neurology for further evaluation of her dementia on discharge 2. Essential HTN/HLD/previous CVA ? Continue with her Plavix, will restart her lisinopril in the morning ? Continue with pravastatin ? Will monitor make adjustments as necessary 3. Anxiety/depression ? Stable ? Continue with Wellbutrin DVT: SCDs 75 minutes was spent on direct patient care, including documentation as well as chart review and collaboration with colleagues Charges/Coding Visit Charges Inpatient E&M: 59550 Init Hosp L3
--- NOTE | 2023-11-16 16:02 | MRI_ITS ---
STUDY: MRI BRAIN WITHOUT CONTRAST REASON FOR EXAM: Female, 83 years old. Confusion, TIA TECHNIQUE: Standardized multiplanar fat and water weighted pulse sequences were obtained. COMPARISON: CT the brain November 16, 2023 FINDINGS: Mild atrophy and moderate periventricular white matter ischemic changes without mass effect or restricted diffusion. There is gliosis in the left parietal lobe with associated encephalomalacia consistent with old infarct. Normal bilateral basal ganglia. Normal thalami. There is no extra-axial fluid accumulation. Normal flow voids within the major intracranial circulation suggesting patency by spin echo criteria. Partial empty sella deformity likely of no significance. Normal, pituitary gland, infundibular stalk, optic chiasm and hypothalamus. Normal tectal plate and pineal gland. Normal midbrain, nathalie and medulla. Normal cerebellum. Normal basal cisterns. Normal bilateral temporal bones. Normal bilateral internal auditory canals. Postsurgical changes of the orbits.. There is mucosal thickening of the maxillary sinuses bilaterally more severe on the left and mild mucosal thickening of the ethmoid air cells. Normal calvarium and skull base. Normal visualized soft tissue structures. Normal visualized upper cervical spine. MRI/Brain without Contrast IMPRESSION: Mild atrophy and moderate periventricular white matter ischemic changes without evidence for acute infarct. Findings consistent with old left parietal lobe infarct.. Electronically Signed: Jj Sheppard MD at 18:59 EDT ,
[2023-11-16] MEDS: 0.9% Saline Lock 10 ML Syringe IV (20:50)
[2023-11-16] MEDS: buPROPion (SR) 150 MG Tablet.SA PO (20:51)
[2023-11-17 03:35] VITALS: BP 100/55; PULSE 74; RESP 16; TEMP 36.7; O2SAT 97
[2023-11-17 07:56] LABS: Absolute Lymphocyte Count 1.59 X10^3/uL (0.83-4.51); Absolute Neutrophil Count 2.4 X10^3/uL (2.0-7.7); Basophil# 0.04 X10^3/uL; Basophil% 0.8 % (0-1); Eosinophils% 6.1 % (0-5); Hematocrit 38.4 % (37-47); Hemoglobin 12.1 g/dL (12.0-15.0); Lymphocyte # 1.59 X10^3/ul (0.83-4.51); Lymphocyte % 32.6 % (19-41); Mean Corp Hgb Conc 31.5 g/dL (32-36); Mean Corpuscular Hgb 28.3 pg (27.0-32.0); Mean Corpuscular Volume 89.7 fL (81-99); Mean Platelet Vol. 10.2 fl (6.2-12.0); Monocyte# 0.58 X10^3/uL; Monocyte% 11.9 % (0-10); NRBC Flagged by Analyzer 0 % (0-5); Neutrophil # 2.36 X10^3/uL (2.7-7.7); Neutrophil % 48.4 % (47-70); Platelet Count 233 K/mm3 (150-450); RBC Distribution Width CV 12.4 % (11.6-14.6); RBC Distribution Width SD 40.1 fl (35.1-43.9); Red Blood Count 4.28 M/mm3 (4.2-5.4); White Blood Count 4.9 K/mm3 (4.4-11.0)
[2023-11-17 08:17] LABS: Anion Gap 6 (5-15); BUN 20 mg/dL (7-18); BUN/Creat Ratio 14.4 RATIO (10-20); Calcium,Total 9.7 mg/dL (8.5-10.1); Chloride 107 mmol/L (98-107); Creatinine, Serum 1.39 mg/dL (0.55-1.02); EST Glomerular Filtration Rate 38 mL/min (>60); Est Glom Filt Rate - Afr Amer 47 mL/min (>60); Estimated Creatinine Clearance 31.42 ml/min; Glucose 88 mg/dL (74-106); Potassium 4.6 mmol/L (3.5-5.1); Sodium Level 139 mmol/L (136-145)
[2023-11-17 08:53] VITALS: BP 107/53; PULSE 73; RESP 16; TEMP 36.8; O2SAT 97
[2023-11-17] MEDS: Famotidine 20 MG Tablet PO (08:59)
[2023-11-17] MEDS: Loratadine 10 MG Tablet PO (08:59)
[2023-11-17] MEDS: Lisinopril 10 MG Tablet PO (08:59)
[2023-11-17] MEDS: buPROPion (SR) 150 MG Tablet.SA PO (08:59)
[2023-11-17] MEDS: Clopidogrel Bisulfate 75 MG Tablet PO (08:59)
[2023-11-17] MEDS: Pravastatin 40 MG Tablet PO (08:59)
[2023-11-17] MEDS: Acetaminophen 325 MG Tablet 650 MG PO (09:29)
--- NOTE | 2023-11-17 10:43 | CASEMGMT ---
Spoke with PT and OT, no therapy recommended for homegoing. Per pt dtr, pt is back to her baseline.
[2023-11-17 11:06] LABS: Mucous, Urine 0 SEEN /hpf (<or=2+)
[2023-11-17 11:13] LABS: Glucose, Dipstick Normal (Normal); Ketone-Dipstick Negative (Negative); Leukocyte Esterase-Dipstick 100 /ul (Negative); Nitrite-Dipstick Negative (Negative); Occult Blood-Urine 10 /ul (Negative); Protein-Dipstick 30 mg/dl (Negative); Urine Bilirubin Dipstick Negative (Negative); Urine Urobilinogen Normal (Normal); Urine pH 6.5 (5.0 - 8.0)
[2023-11-17 11:15] LABS: Color, Urine Yellow (Yellow); Urine Clarity Sl Cloudy (Clear)
[2023-11-17 11:30] LABS: Squamous Epithelial Cells - UA 5-10 SEEN /hpf (5-10)
--- NOTE | 2023-11-17 11:30 | DS.PCM_ITS ---
Providers Date of Admission: 11/16/23 Date of Discharge: 11/17/23 Primary Care Physician: Dr. Meño Lloyd MD Reason For Visit: TIA VS TOXIC ENCEPHALOPATHY Diagnosis Discharge Diagnosis (1) TIA (transient ischemic attack): Status: Acute Code(s): G45.9 - Transient cerebral ischemic attack, unspecified Medications at Discharge Home Medications lisinopril 10 mg tablet 10 mg PO DAILY blood pressure 05/22/13 cholecalciferol (vitamin D3) 25 mcg (1,000 unit) tablet (Vitamin D3) 1,000 unit PO DAILY SUPPLEMENT 05/29/14 pravastatin 40 mg tablet 40 mg PO DAILY cholesterol 05/29/14 artificial tears(hypromellose) 0.3 % eye gel (Systane Gel) 1 drp EACH EYE QHS eye dryness 11/16/23 bupropion HCl 150 mg tablet,12 hr sustained-release 150 mg PO BID mood 11/16/23 cetirizine 10 mg capsule (All Day Allergy (cetirizine)) 10 mg PO DAILY allergies 11/16/23 clopidogrel 75 mg tablet 75 mg PO DAILY antiplatelet 11/16/23 dextromethorphan 20 mg-quinidine 10 mg capsule (Nuedexta) 1 cap PO BID brain 11/16/23 famotidine 20 mg tablet 20 mg PO BID acid reflux 11/16/23 Hospital Course Operations None Procedures EKG and - (MRI brain, chest x-ray, CTA head/neck, CT brain) Summary of Care Provided Minutes Spent on Discharge: 35 Hospital Course: Patient is an 83-year-old female who presented [facility] ED on 11/16/2023 with acute onset confusion and concern for stroke. Short hospital course as noted below. Patient discharged home in stable condition on 11/16. . 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 Presented with acute onset confusion of unclear etiology. Was made stroke alert in the ED. CT brain was unremarkable. 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 MRI brain showed mild atrophy, moderate periventricular white matter ischemic changes and old left parietal lobe infarct but no acute changes. Patient had resolution of symptoms by night of admission. Teleneurology evaluated, suspected TIA versus possible toxic or metabolic encephalopathy of unclear origin. Patient notably started following with neurology at the [facility] recently for worsening dementia that is suspected to be due to vascular dementia. Did well with therapy on day of discharge and mentation remained stable at baseline. Stable for discharge home with daughter and continue outpatient follow-up with neurology as previously scheduled. Continue home Plavix and statin. Chronic medical conditions: ? Hypertension: Stable. Continue home lisinopril. ? Hyperlipidemia: Continue home statin. ? Anxiety/depression: Stable. Continue home bupropion. ? GERD: Continue home PPI. Total clinical time spent by myself addressing the patient's medical issues, reviewing all the data, and collaborating with patient's care team: 35 minutes. Physical Exam Const alert, oriented x3, no apparent distress and average body habitus Constitutional Narrative: Pleasant elderly female, sitting up comfortably in bedside chair, alert and oriented to person and place, making appropriate eye contact and answering some questions with short appropriate sponsors but also losing train of thought at times, otherwise in no acute distress. General Appearance: cooperative and comfortable HEENT normocephalic, head/scalp atraumatic, hearing grossly normal bilaterally, nasal mucous membranes and turbinates normal and moist oral mucous membranes Eyes PERRL, EOMs intact bilaterally and conjunctivae normal Neck full ROM Chest inspection of chest normal Resp normal respiratory effort, normal air movement, no use of accessory muscles and clear to auscultation bilaterally Cardio regular rate, regular rhythm, no murmurs and peripheral pulses 2+ throughout GI normal to inspection, nondistended, normoactive bowel sounds, soft to palpation, non-tender and non-distended Back/Spine normal ROM Extremity normal to inspection, full ROM and no pedal edema Skin no rashes or lesions noted Neuro moves all extremities and no focal motor deficits Speech: speech normal Psych mental status grossly normal Weight / BMI Weight Weight: 73.3 kg Body Mass Index (BMI) 26.0 ABG / Lab / Microbiology Data 11/17/23 07:16 11/17/23 07:16 Laboratory: Laboratory Results - last 24 hr 11/16/23 12:41: POC Glucose 77 11/16/23 12:50: WBC 5.1, RBC 4.43, Hgb 12.5, Hct 39.7, MCV 89.6, MCH 28.2, MCHC 31.5 L, RDW Std Deviation 39.4, RDW Coeff of Dianelys 12.1, Plt Count 230, MPV 10.3, Immature Gran % (Auto) 0.400, Neut % (Auto) 49.4, Lymph % (Auto) 30.7, Spalding % (Auto) 12.3 H, Eos % (Auto) 6.4 H, Baso % (Auto) 0.8, Absolute Neuts (auto) 2.5, Absolute Lymphs (auto) 1.58, Nucleated RBC % 0, PT 14.0, INR 1.1, APTT 29.9, S odium 133 L, Potassium 4.8, Chloride 101, Carbon Dioxide 27.0, Anion Gap 5, BUN 21 H, Creatinine 1.38 H, Estim Creat Clear Calc 31.78, Est GFR (MDRD) Af Amer 47 L, Est GFR (MDRD) Non-Af 39 L, BUN/Creatinine Ratio 15.2, Glucose 87, Calcium 9.7, Troponin I High Sens 7 11/16/23 12:51: Urine Color Yellow, Urine Clarity Sl Cloudy, Urine pH 6.5, Ur Specific Kirksey 1.010, Urine Protein 30 H, Urine Glucose (UA) Normal, Urine Ketones Negative, Urine Occult Blood 10 H, Urine Nitrite Negative, Urine Bilirubin Negative, Urine Urobilinogen Normal, Ur Leukocyte Esterase 100 H 11/16/23 13:00: Lactic Acid 0.7 11/17/23 07:16: WBC 4.9, RBC 4.28, Hgb 12.1, Hct 38.4, MCV 89.7, MCH 28.3, MCHC 31.5 L, RDW Std Deviation 40.1, RDW Coeff of Dianelys 12.4, Plt Count 233, MPV 10.2, Immature Gran % (Auto) 0.200, Neut % (Auto) 48.4, Lymph % (Auto) 32.6, Spalding % (Auto) 11.9 H, Eos % (Auto) 6.1 H, Baso % (Auto) 0.8, Absolute Neuts (auto) 2.4, Absolute Lymphs (auto) 1.59, Nucleated RBC % 0, Sodium 139, Potassium 4.6, Chloride 107, Carbon Dioxide 26.0, Anion Gap 6, BUN 20 H, Creatinine 1.39 H, Estim Creat Clear Calc 31.42, Est GFR (MDRD) Af Amer 47 L, Est GFR (MDRD) Non-Af 38 L, BUN/Creatinine Ratio 14.4, Glucose 88, Calcium 9.7 Radiography Diagnostic Testing: Radiology Impression Brain CT 11/16/23 12:41 IMPRESSION: Chronic involutional changes of the brain. N.B. : The above Results were Read Back by Patel Burris MD to Rob Evans DO, and understanding confirmed on 11/16/2023 13:01:30 (ET). Electronically Signed: Patel Burris MD at 13:02 EDT , ADDENDUM: 11/16/23 1309 IMPRESSION: Chronic involutional changes of the brain. N.B. : The above Results were Read Back by Patel Burris MD to Rob Evans DO, and understanding confirmed on 11/16/2023 13:01:30 (ET). 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 Mild plaque formation at the origin of the left internal carotid artery. 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 Mild plaque formation at the origin of the left internal carotid artery. N.B. : The above Results were Read Back by Patel Burris MD to Rob Evans DO, and understanding confirmed on 11/16/2023 13:37:04 (ET). Electronically Signed: Patel Burris MD at 13:19 EDT , Chest X-Ray 11/16/23 13:20 IMPRESSION: Stable examination. Electronically Signed: Patel Burris MD at 13:51 EDT , Brain MRI 11/16/23 16:02 IMPRESSION: Mild atrophy and moderate periventricular white matter ischemic changes without evidence for acute infarct. Findings consistent with old left parietal lobe infarct.. Electronically Signed: Jj Sheppard MD at 18:59 EDT , Meaningful Use Info Meaningful Use Meaningful Use Diagnoses (Choose all that apply): None applicable Ischemic Stroke Statin Dosing Therapy Reference: STATIN DOSE THERAPY REFERENCE: * Patients > 75 years receive moderate or high dose statin therapy. * Patients 75 years or YOUNGER should receive HIGH intensity statin dose unless contraindicated. You will be required to document reason for non-treatment if statin daily dose does not meet guidelines. HIGH DOSE STATIN THERAPY DAILY Atorvastatin > than or = to 40 mg Rosuvastatin > than or = to 20 mg Amlodipine + Atorvastatin > than or = to 2.5/40 mg Ezetimibe + Simvastatin 10/80 mg Simvastatin 80mg Discharge Plan Admission Admit Date/Time: 11/16/23 14:27 Primary Reason for Your Visit: Altered mentation Attending Provider: Yomi Carpenter Primary Care Provider: Meño Lloyd Consulting Providers: Gianni Torres Discharge Orders/Prescriptions Prescriptions: Continued lisinopril 10 MG tablet 10 mg PO DAILY pravastatin 40 MG tablet 40 mg PO DAILY Patient Comments: CHOLESTEROL cholecalciferol (vitamin D3) [Vitamin D3] 1,000 UNIT tablet 1,000 unit PO DAILY clopidogrel 75 mg tablet 75 mg PO DAILY bupropion HCl 150 mg tablet sustained-release 12 hr 150 mg PO BID All Day Allergy (cetirizine) 10 mg capsule 10 mg PO DAILY famotidine 20 mg tablet 20 mg PO BID Nuedexta 20-10 mg capsule 1 cap PO BID Systane Gel 0.3 % gel 1 drp EACH EYE QHS Referrals / Follow Up: Meño Lloyd MD [Primary Care Provider] - Disposition Disposition (needs filled in before D/C Order can be placed): Home, Self Care Charges/Coding Visit Charges Inpatient E&M: 63345 Disch Hosp >30min
[2023-11-17 11:32] LABS: White Blood Cells 5-10 SEEN /hpf (0-5)
[2023-11-17 11:34] LABS: Bacteria RARE /hpf (None Seen); Red Blood Cells-Urine 0-5 SEEN /hpf (0-5)
[2023-11-17 13:54] VITALS: BP 120/76; PULSE 78; RESP 16; O2SAT 99
== END 2023-11-17 13:29 | disposition home or self-care (01) ==
LOC: ED 14:11 → PCU 14:57
PROVIDERS: Admitting Provider Family Medicine; Emergency Provider Surgery; PCP Family Medicine; Visit Provider Hospitalist
DX: G45.9 Transient cerebral ischemic attack, unspecified (principal); Z79.02 Long term (current) use of antithrombotics/antiplatelets; F32.A Depression, unspecified; E78.00 Pure hypercholesterolemia, unspecified; I69.393 Ataxia following cerebral infarction; I12.9 Hypertensive chronic kidney disease with stage 1 through stage 4 chronic kidney disease, or unspecified chronic kidney disease; F17.210 Nicotine dependence, cigarettes, uncomplicated; R41.0 Disorientation, unspecified; N18.9 Chronic kidney disease, unspecified; K21.9 Gastro-esophageal reflux disease without esophagitis; F41.9 Anxiety disorder, unspecified; R47.01 Aphasia; Z79.899 Other long term (current) drug therapy; I69.311 Memory deficit following cerebral infarction; I73.9 Peripheral vascular disease, unspecified
CPT/HCPCS: 36415; 70450; 70496; 70498; 70551; 71045; 80048; 81001; 82962; 83605; 84484; 85025; 85610; 85730; 93005; 96360; 97162; 97166; 99221; 99284; Q9967; A4216; G0378

== ENCOUNTER → 2023-11-23 05:00 | Outpatient (REF) | payer MEDICARE, MEDICAID, SELFPAY ==
[2023-11-25 17:07] LABS: QNTFERON TB Mitogen Value > 10.00 IU/mL (.); QNTFERON TB Nil Value 0.03 IU/mL (.); QNTFERON TB1+ Ag Value 2.98 IU/mL (.); QNTFERON TB2+ Ag Value 3.22 IU/mL (.); QNTIFERON TB Positive Criteria Positive (Negative)
== END ==
LOC: OLS.WHLEAS 05:00
PROVIDERS: PCP Family Medicine; Visit Provider Internal Medicine
DX: I77.9 Disorder of arteries and arterioles, unspecified (principal); F03.90 Unspecified dementia, unspecified severity, without behavioral disturbance, psychotic disturbance, mood disturbance, and anxiety; E11.22 Type 2 diabetes mellitus with diabetic chronic kidney disease; N18.31 Chronic kidney disease, stage 3a
CPT/HCPCS: 36415; 86480

== ENCOUNTER 2023-12-19 16:20 | Emergency (ER) | payer MEDICARE, MEDICAID, SELFPAY ==
[2023-12-19 16:21] VITALS: BP 152/78; PULSE 78; RESP 16; TEMP 36.4; O2SAT 98; BMI 27.7
--- NOTE | 2023-12-19 17:12 | CT_ITS ---
EXAMINATION : Head CT w/out contrast HISTORY : Trauma, HIA COMPARISON : 11/16/2023. TECHNIQUE : Multiple contiguous axial images were obtained from the skull base to the vertex without intravenous contrast. A radiation dose optimization technique was used for this scan. FINDINGS : There is no evidence for acute intracranial hemorrhage, mass effect, or midline shift. There is no extra-axial fluid collection. There are periventricular white matter changes consistent with chronic microvascular ischemic disease. There is sulcal widening and ventricular enlargement consistent with cerebral atrophy. There is normal prado-white differentiation, without CT evidence of acute ischemia or infarct. Left parietal encephalomalacia. The skull base and calvarium are unremarkable. The orbits are unremarkable. The paranasal sinuses are clear. The mastoid air cells are well-aerated. The soft tissues are unremarkable. CT/Brain/Head without Contrast IMPRESSION: No acute intracranial abnormality. Chronic involutional and ischemic changes of the brain. Electronically Signed: Gerhard Bowles MD at 18:01 EDT ,
--- NOTE | 2023-12-19 17:12 | CT_ITS ---
INDICATION: Trauma EXAMINATION: CT CERVICAL SPINE - CT Spine Cervical W/O Contrast Injection TECHNIQUE: Helically acquired images were obtained of the cervical spine. 2D reformatted images were reviewed. A radiation dose optimization technique was used for this scan. IV Contrast dosage and agent: None. COMPARISON: None. FINDINGS: VERTEBRAE: No fracture or traumatic subluxation. No discrete lytic or blastic abnormality. Normal alignment. Normal craniocervical junction and cervicothoracic junction. DISCS and SPINAL CANAL: Severe multilevel degenerative disc disease and spondylosis. No critical stenosis. NECK SOFT TISSUES: No prevertebral soft tissue swelling. There is no cervical adenopathy. LUNG APICES: Clear. CT/Spine Cervical without Contras IMPRESSION: No evidence of acute cervical spinal fracture or spondylolisthesis. Severe multilevel degenerative disc disease and spondylosis. Electronically Signed: Gerhard Bowles MD at 18:02 EDT ,
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
[2023-12-19 18:20] VITALS: BP 148/78; PULSE 78; RESP 16; TEMP 36.6; O2SAT 98
== END 2023-12-19 18:50 | disposition home or self-care (01) ==
PROVIDERS: Emergency Provider Emergency Medicine; PCP Family Medicine; Visit Provider Emergency Medicine
DX: S10.91XA Abrasion of unspecified part of neck, initial encounter (principal); F03.90 Unspecified dementia, unspecified severity, without behavioral disturbance, psychotic disturbance, mood disturbance, and anxiety; E78.00 Pure hypercholesterolemia, unspecified; M50.30 Other cervical disc degeneration, unspecified cervical region; Z90.710 Acquired absence of both cervix and uterus; F17.210 Nicotine dependence, cigarettes, uncomplicated; Z86.73 Personal history of transient ischemic attack (TIA), and cerebral infarction without residual deficits; Z79.02 Long term (current) use of antithrombotics/antiplatelets; V59.50XA Passenger in pick-up truck or van injured in collision with unspecified motor vehicles in traffic accident, initial encounter; I10 Essential (primary) hypertension; Z79.899 Other long term (current) drug therapy
CPT/HCPCS: 70450; 72125; 99282